=== PATIENT | male | born 1960 | race Caucasian/White ===

== ENCOUNTER 2022-11-28 07:55 | Inpatient (IN) | payer OTHER ==
[2022-11-28] VITALS (10 sets, daily range): BP systolic 133–183; BP diastolic 70–87; PULSE 57–69; RESP 19–20; TEMP 97.7–98.1
[~2022-11-28 07:55] MED LIST: ATOR40TA28 PO; GABA-1216 PO; LISI-893 PO; METF-1211 PO
[2022-11-28] MEDS ORDERED: SODIUM CHLORIDE 0.9% 1,000 ML IV ONE (08:30)
[2022-11-28] MEDS ORDERED: SODIUM CHLORIDE 0.9% 1,000 ML ONE (08:49)
[2022-11-28] MEDS ORDERED: DIAZEPAM 5 MG TABLET ONE (08:50)
[2022-11-28] MEDS ORDERED: DiphenhydrAMINE HCL 50 MG CAPSULE ONE (08:50)
[2022-11-28] MEDS ORDERED: ASPIRIN 81 MG CHEWABLE TABLET ONE (08:50)
[2022-11-28 09:57] LABS: GLUCOMETER DEV NAME(LOC) SDS.; GLUCOSE,POINT OF CARE 114 MG/DL (70-110)
[2022-11-28] MEDS ORDERED: ASPI81TA87 PO (10:19)
[2022-11-28] MEDS ORDERED: DIAZEPAM 5 MG TABLET PO ONE (10:30)
[2022-11-28] MEDS ORDERED: ASPIRIN 81 MG CHEWABLE TABLET PO ONE (10:30)
[2022-11-28] MEDS ORDERED: DiphenhydrAMINE HCL 50 MG CAPSULE PO ONE (10:30)
[2022-11-28] MEDS ORDERED: LIDOCAINE/PF 1% 30 ML VIAL ONE (10:35)
[2022-11-28] MEDS ORDERED: SODIUM BICARBONATE 50 MEQ/50 ML VIAL ONE (10:35)
[2022-11-28] MEDS ORDERED: IOHEXOL 300 MG/ML 100 ML VIAL ONE (10:36)
[2022-11-28] MEDS ORDERED: HEPARIN SODIUM 1000 UNITS/NS 1,000 ML ONE (10:36)
[2022-11-28] MEDS ORDERED: FentaNYL CITRATE PF 100 MCG/2 ML VIAL ONE (10:58)
[2022-11-28] MEDS ORDERED: MIDAZOLAM HCL 2 MG/2 ML VIAL ONE (10:59)
[2022-11-28] MEDS ORDERED: IOHEXOL 300 MG/ML 100 ML VIAL IARTER ONE (11:00)
[2022-11-28] MEDS ORDERED: FentaNYL CITRATE PF 100 MCG/2 ML VIAL IVP ONE ×2 (11:00→11:45)
[2022-11-28] MEDS ORDERED: LIDOCAINE 1% 30 ML/SOD BICARB 8.4% 4 ML SQ ONE (11:00)
[2022-11-28] MEDS ORDERED: HEPARIN SODIUM,PORCINE 1,000 UNITS/ML 10 ML VIAL IVP ONE (11:00)
[2022-11-28] MEDS ORDERED: MIDAZOLAM HCL 2 MG/2 ML VIAL IVP ONE ×2 (11:00→11:45)
[2022-11-28] MEDS ORDERED: HEPARIN SODIUM 1000 UNITS/NS 1,000 ML IARTER ONE (11:00)
[2022-11-28] MEDS ORDERED: LISI40TA9 PO (11:30)
[2022-11-28] MEDS ORDERED: IOHEXOL 300 MG/ML 50 ML VIAL ONE (11:36)
[2022-11-28] MEDS ORDERED: TICAGRELOR 90 MG TABLET ONE (11:45)
[2022-11-28] MEDS ORDERED: TICAGRELOR 90 MG TABLET PO ONE (11:45)
[2022-11-28] MEDS ORDERED: IOHEXOL 300 MG/ML 50 ML VIAL IARTER ONE (11:45)
[2022-11-28] MEDS ORDERED: SODIUM CHLORIDE 0.9% 250 ML IV ONE (12:24)
[2022-11-28] MEDS: TICAGRELOR 60 MG TABLET PO SCH (20:30)
[2022-11-28] MEDS ORDERED: IPRATROPIUM BROMIDE 0.5 MG/2.5 ML NEB SOLUTION NEB PRN (23:30)
[2022-11-28] MEDS ORDERED: HYDROCODONE/ACETAMINOPHEN 5-325 MG TABLET PO PRN (23:30)
[2022-11-28] MEDS ORDERED: MAGNESIUM HYDROXIDE SUSPENSION 30 ML UDCUP PO PRN (23:30)
[2022-11-28] MEDS ORDERED: ALBUTEROL SULFATE 2.5 MG/0.5 ML NEB SOLUTION NEB PRN (23:30)
[2022-11-28] MEDS ORDERED: ACETAMINOPHEN 325 MG TABLET PO PRN (23:30)
[2022-11-28] MEDS ORDERED: ZOLPIDEM TARTRATE 5 MG TABLET PO PRN (23:30)
[2022-11-28] MEDS ORDERED: BISACODYL 10 MG RECTAL RECTAL SUPPOSITORY PR PRN (23:30)
[2022-11-28] MEDS ORDERED: ONDANSETRON HCL 4 MG/2 ML VIAL IVP PRN (23:30)
[2022-11-28] MEDS ORDERED: MORPHINE SULFATE 2 MG/ML SYRINGE IVP PRN (23:30)
[2022-11-28] MEDS ORDERED: METOPROLOL TARTRATE 25 MG TABLET PO ONE (23:30)
[2022-11-28] MEDS: HEPARIN SODIUM,PORCINE 5,000 UNITS/ML VIAL SQ SCH (23:54)
[2022-11-29 00:08] VITALS: BP 165/75; PULSE 71; RESP 18; TEMP 98.3
[2022-11-29 00:29] LABS: BASOPHILS % (AUTO) 0.4 % (0.0-2.0); EOSINOPHILS % (AUTO) 2.9 % (1.0-6.0); HEMATOCRIT 31.5 % (41-53); HEMOGLOBIN 10.7 g/dL (13.5-17.5); LYMPHOCYTES # (AUTO) 1.4 K/uL (1.0-4.8); LYMPHOCYTES % (AUTO) 16.4 % (22.0-44.0); MEAN CORPUSCULAR VOLUME 91 fL (80-100); MONOCYTES # (AUTO) 0.8 K/uL (0.1-1.0); MONOCYTES % (AUTO) 9.1 % (2.0-9.0); NEUTROPHILS # (AUTO) 6.2 K/uL (1.8-7.7); NEUTROPHILS % (AUTO) 71.2 % (40.0-70.0); PLATELET COUNT (AUTO) 193 K/uL (150-450); RED BLOOD CELL COUNT(AUTO) 3.45 MIL/uL (4.50-5.90); RED CELL DISTRIBUTION WIDTH 14.3 % (11.5-14.5); WHITE BLOOD COUNT (AUTO) 8.8 K/uL (4.5-11.0)
[2022-11-29 00:39] LABS: ANION GAP 5 mmol/L (8-16); CALCIUM, TOTAL 9.1 mg/dL (8.8-10.5); CARBON DIOXIDE 29 mmol/L (22-29); CHLORIDE 101 mmol/L (98-107); CREATININE 0.91 mg/dL (0.60-1.30); GLOMERULAR FILTR. RATE CALC > 60 mL/min (>60); GLUCOSE,RANDOM 104 mg/dL (70-110); POTASSIUM 4.1 mmol/L (3.5-5.1); SODIUM SERUM 135 mmol/L (136-145); UREA NITROGEN, BLOOD 17 mg/dL (7-18)
[2022-11-29 00:45] LABS: ALANINE AMINOTRANSFERASE 16 U/L (12-78); ALBUMIN 3.3 g/dL (3.4-5.0); ALKALINE PHOSPHATASE 71 U/L (46-116); ASPARTATE AMINOTRANSFERASE 28 U/L (15-37); BILIRUBIN,TOTAL 0.4 mg/dL (0.1-1.0); TOTAL PROTEIN, SERUM 6.1 g/dL (6.4-8.2)
[2022-11-29 06:21] VITALS: BP 151/74; PULSE 65; RESP 18; TEMP 98.3
[2022-11-29 08:13] VITALS: BP 152/78; PULSE 76; RESP 18; TEMP 98.1
[2022-11-29] MEDS ORDERED: ATORVASTATIN CALCIUM 40 MG TABLET PO SCH (09:00)
[2022-11-29] MEDS ORDERED: GABAPENTIN 100 MG CAPSULE PO SCH (09:00)
[2022-11-29] MEDS ORDERED: METOPROLOL TARTRATE 25 MG TABLET PO SCH (09:00)
[2022-11-29] MEDS ORDERED: LISINOPRIL 20 MG TABLET PO SCH (09:00)
[2022-11-29] MEDS ORDERED: ASPIRIN 81 MG DR TABLET PO SCH (09:00)
[2022-11-29] MEDS ORDERED: PANTOPRAZOLE SODIUM 40 MG DR TABLET PO SCH (09:00)
[2022-11-29] MEDS: HEPARIN SODIUM,PORCINE 5,000 UNITS/ML VIAL SQ SCH (09:37)
[2022-11-29] MEDS: TICAGRELOR 60 MG TABLET PO SCH (09:40)
[2022-11-29] MEDS ORDERED: METO25 PO (10:04)
[2022-11-29] MEDS ORDERED: ASPI-1444 PO (10:04)
[2022-11-29] MEDS ORDERED: TICA60TA PO (10:04)
== END 2022-11-29 13:05 | disposition home or self-care (01) | DRG 175 ==
LOC: 5S 07:55 → EDSTATUS 10:30
PROVIDERS: ADMIT Internal Medicine Interventional Cardiology; ATTEND Internal Medicine Interventional Cardiology
PROC: 027036Z Dilation of Coronary Artery, One Artery with Three Drug-eluting Intraluminal Devices, Percutaneous Approach (ICD-10-PCS; principal; 2022-11-28)
PROC: 4A023N7 Measurement of Cardiac Sampling and Pressure, Left Heart, Percutaneous Approach (ICD-10-PCS; 2022-11-28)
PROC: B2111ZZ Fluoroscopy of Multiple Coronary Arteries using Low Osmolar Contrast (ICD-10-PCS; 2022-11-28)
PROC: B2151ZZ Fluoroscopy of Left Heart using Low Osmolar Contrast (ICD-10-PCS; 2022-11-28)
PROC: B41F1ZZ Fluoroscopy of Right Lower Extremity Arteries using Low Osmolar Contrast (ICD-10-PCS; 2022-11-28)
DX: I25.10 Atherosclerotic heart disease of native coronary artery without angina pectoris (principal); E11.51 Type 2 diabetes mellitus with diabetic peripheral angiopathy without gangrene; I10 Essential (primary) hypertension; E78.5 Hyperlipidemia, unspecified; I73.9 Peripheral vascular disease, unspecified
CPT/HCPCS: 80053; 82962; 85025; 92920; 92928; 93005; J1644; J2250; J3010; J3490; J7030; J7050; Q9967; 36415-L1; 36415-TC